=== PATIENT | male | born 1995 | race Caucasian/White ===

== ENCOUNTER 2018-07-26 03:41 | Emergency (ER) | payer OTHER ==
[~2018-07-26] VITALS: Ht 177.8 cm; Wt 65.9 kg
[2018-07-26] MEDS ORDERED: KETOROLAC 60 MG/2 ML VIAL (J1885) IM ONE (06:45)
--- NOTE | 2018-07-26 06:47 | REPVR ---
EXAM: CT Chest Without Contrast EXAM DATE/TIME: 07/26/2018 6:19 AM CLINICAL HISTORY: 23 years old, male; Shortness of breath; Chest wall pain TECHNIQUE: Imaging protocol: Axial computed tomography images of the chest without intravenous contrast. Coronal and sagittal reformatted images were created and reviewed. 3D rendering: MIP reconstructed images were created and reviewed. Radiation optimization: All CT scans at this facility use at least one of these dose optimization techniques: automated exposure control; mA and/or kV adjustment per patient size (includes targeted exams where dose is matched to clinical indication); or iterative reconstruction. COMPARISON: No relevant prior studies available. FINDINGS: Lungs: The lungs are clear. There is no lung consolidation or mass. No emphysematous changes or interstitial lung disease is noted. The major airways are patent. Pleural space: Normal. No pneumothorax. No pleural effusion. Heart: No cardiomegaly. No pericardial effusion. Mediastinum: No mediastinal mass, hemorrhage, or pneumomediastinum is noted. Aorta: There is no thoracic aortic aneurysm or intramural hematoma. Lymph nodes: Normal. No enlarged lymph nodes. Bones/joints: There is a plate and screws fixating a healed fracture of the mid to distal portion of the left clavicle, which was not fully imaged. No acute fracture or dislocation is noted. The ribs are intact. No costochondral separation injury is noted. The sternoclavicular joints are unremarkable. There is no suspicious osteolytic or osteoblastic lesion. A few endplate spurs are noted in the thoracic spine. No obvious disc herniation, spinal canal stenosis, or neural foraminal stenosis is noted in the thoracic spine. Soft tissues: Unremarkable. No soft tissue fluid collection. Spleen: Unremarkable. No splenomegaly is noted. Adrenals: Normal. No adrenal mass. IMPRESSION: No acute findings in the chest. Electronically signed by: Frederick Jeronimo On 07/26/2018 06:47:31 AM
[2018-07-26] MEDS ORDERED: NAPR-837 PO (06:55)
[2018-07-26 07:14] VITALS: BP 105/66
== END 2018-07-26 07:17 | disposition home or self-care (01) ==
LOC: M ED 03:41
DX: S20.219A Contusion of unspecified front wall of thorax, initial encounter (principal); W51.XXXA Accidental striking against or bumped into by another person, initial encounter; Y92.89 Other specified places as the place of occurrence of the external cause; Y99.1 Military activity
CPT/HCPCS: 71250; 96372; 99284; J1885